=== PATIENT | female | born 1935 | race Caucasian/White ===

== ENCOUNTER 2020-02-13 21:43 | Emergency (ER) | payer MEDICARE ==
[~2020-02-13] VITALS: Ht 160 cm; Wt 63.5 kg
[~2020-02-13 21:43] MED LIST: AGRYLIN0.5 MG PO; ALLOPURINOL 30300 M1; ASPIRIN EC81 M1 PO; CALCIUM 500 +1 EAC5; CIPRO500 MG PO; CLEOCIN HCL300 MG PO; COMPAZINE5 M1 PO; DIPHENHIST50 MG; DIPHENHIST50 MG PO; FISH OIL 1,001000 MG PO; FLAGYL500 MG PO; GLUCOSAMINE &1 EACH PO; HYDREA 500 MG500 M1; KRILL OIL500 MG PO; LEVAQUIN 750 M750 MG PO; LIPITOR40 MG PO; MELATONIN5 M1 PO; MICARDIS HCT 81 EACH; MICARDIS HCT 81 EACH PO; MIDODRINE HCL 55 M1 PO; MOBIC15 MG; NORVASC 5 MG TAB5 MG; OMEPRAZOLE20 M2 PO; PROAMATINE2.5 MG; PROBIOTIC1 EAC1 PO; SERTRALINE HCL50 MG PO; TENORMIN25 MG PO; TIROSINT75 MCG PO; TRAMADOL 50 MG50 MG PO; TYLENOL EX-STR500 M2; UNICOMPLEX M TA1 TA1 PO; VITAMIN E400 UNIT PO; ZOCOR 20 MG TAB20 M1 PO; [UNRECOGNIZED DRUG - OTHER]
[2020-02-13] MEDS ORDERED: TRIPLE ANTIBIOT14 GM TOP (22:33)
[2020-02-13] MEDS ORDERED: KEFLEX500 M1 PO (22:33)
[2020-02-13] MEDS ORDERED: AQUAPHOR85 GM TOP (22:33)
[2020-02-13 22:47] VITALS: BP 165/72
== END 2020-02-13 22:48 | disposition home or self-care (01) ==
LOC: M.ERS 21:43
DX: T24.212A Burn of second degree of left thigh, initial encounter (principal); T31.11 Burns involving 10-19% of body surface with 10-19% third degree burns; M81.0 Age-related osteoporosis without current pathological fracture; I10 Essential (primary) hypertension; Z88.8 Allergy status to other drugs, medicaments and biological substances; Z88.0 Allergy status to penicillin; Z91.040 Latex allergy status; Z88.1 Allergy status to other antibiotic agents; Z79.899 Other long term (current) drug therapy; Z79.82 Long term (current) use of aspirin; Z90.49 Acquired absence of other specified parts of digestive tract; Z86.73 Personal history of transient ischemic attack (TIA), and cerebral infarction without residual deficits; X19.XXXA Contact with other heat and hot substances, initial encounter; Y93.89 Activity, other specified; Y92.89 Other specified places as the place of occurrence of the external cause; Y99.8 Other external cause status

== ENCOUNTER 2020-02-25 07:42 | Inpatient (IN) | payer MEDICARE ==
[~2020-02-25] VITALS: Ht 160 cm; Wt 63.0 kg
[~2020-02-25 07:42] MED LIST changes: +AQUAPHOR85 GM TOP; +KEFLEX500 M1 PO; +TRIPLE ANTIBIOT14 GM TOP
[2020-02-25 07:44] VITALS: BP 175/76
[2020-02-25] MEDS ORDERED: SERTRALINE HCL50 MG PO (08:12)
[2020-02-25] MEDS ORDERED: AGRYLIN0.5 MG PO ×2 (08:13→11:44)
[2020-02-25] MEDS ORDERED: MYRBETRIQ50 MG PO (08:15)
[2020-02-25] MEDS ORDERED: TYLENOL EXTRA500 MG PO (08:16)
[2020-02-25 08:49] LABS: URINE BILIRUBIN NEGATIVE (Negative); URINE BLOOD 1+ (Negative); URINE CLARITY CLEAR; URINE COLOR YELLOW; URINE GLUCOSE-RANDOM NEGATIVE (Negative); URINE KETONES NEGATIVE (Negative); URINE LEUKOCYTES-REFLEX TRACE (Negative); URINE NITRITE-REFLEX NEGATIVE (Negative); URINE PROTEIN NEGATIVE (Negative); URINE SPECIFIC GRAVITY <= 1.005 (1.005-1.030); URINE UROBILINOGEN 0.2 E.U./dl (0.2-1.0)
[2020-02-25 08:59] LABS: HEMATOCRIT 35.1 % (37.0-47.0); HEMOGLOBIN 11.9 gm/dL (12.0-15.0); RBC 3.97 mil/uL (4.20-5.00)
[2020-02-25 09:08] LABS: MCH 29.9 pg (26.0-34.0); MCHC 33.8 g/dL (28.0-37.0); MCV 88.6 fL (80.0-100.0); MPV 8.6 fl. (7.2-11.1); NUCLEATED RBCS 0 /100WBC; PLATELET COUNT* 228 thou/uL (150-400); RDW-CV 17.9 % (10.5-14.5); WBC 10.1 thou/uL (4.0-11.0)
[2020-02-25 09:09] LABS: BACTERIA-REFLEX None Seen /HPF (None Seen); CASTS None Seen /LPF (None Seen); CRYSTALS None Seen /LPF (None Seen); MUCUS None Seen strn/LPF (None Seen); SQUAMOUS 4-10 Moderate /LPF (0-3); TRANSITIONAL EPITHEL CELL 0-3 Few /LPF (None Seen); URINE RBC 3-10 Few /HPF (0-2); URINE WBC-REFLEX 6-15 Few /HPF (0-5)
[2020-02-25 09:12] LABS: CALCIUM 8.8 mg/dL (8.5-10.1); CREATININE 0.9 mg/dL (0.6-1.3); POTASSIUM 3.2 mmol/L (3.5-5.1)
[2020-02-25 09:14] LABS: PROTIME 10.9 Seconds (9.20-11.50)
[2020-02-25 09:22] LABS: ALBUMIN 3.8 g/dL (3.4-5.0); TOTAL BILIRUBIN 0.6 mg/dL (<0.1-1.0); TOTAL PROTEIN 8.3 g/dL (6.4-8.2)
[2020-02-25 09:58] LABS: ABSOLUTE EOSINOPHILS 0.1 thou/uL (0.0-0.7); ABSOLUTE LYMPHOCYTES 1.3 thou/uL (0.8-5.3); ABSOLUTE MONOCYTES 0.7 thou/uL (0.0-1.2); METAMYELOCYTES 1 %
[2020-02-25 09:59] LABS: MICROCYTES 1+; PLATELET ESTIMATE ADEQUATE
[2020-02-25 10:00] LABS: OVALOCYTES 1+
--- NOTE | 2020-02-25 10:53 | EKG ---
[place] [address] ELECTROCARDIOGRAM REPORT Name: BALJINDER CR Room: [facility]-9 ADM IN .R.#: [id number] Admission: 02/25/20 Attend Phys: Anna Jerez, Discharge: Date of : 33 Date of Service: 02/25/20 0815 Report #: [id number] THIS REPORT FOR: //name// [facility] ED Test Date: 2020-02-25 Test Time: 08:15:39 Pat Name: BALJINDER CR Department: Room: [facility] Gender: F Urologist Md: TDS : 1935 Requested By: Santo Kerr Order Number: [id number] MD: Hermann Belcher Measurements Intervals [place] Rate: 81 P: 42 FL: 205 QRS: 25 QRSD: 105 T: 57 QT: 404 QTc: 469 Interpretive Statements Sinus rhythm Abnormal R-wave progression, early transition Borderline repol abnormality, lateral leads Minimal ST elevation, inferior leads Baseline wander in lead(s) V5,V6 Compared to ECG 02/04/2017 22:37:12 ST (T wave) deviation now present Atrial abnormality no longer present Left ventricular hypertrophy no longer present Electronically Signed On 02-25-2020 10:53:21 RESPITE PROVIDER by Hermann Belcher [email or web address] <ELECTRONICALLY SIGNED> By: Hermann Belcher MD, [facility] 02/25/20 1053 4 4 Hermann Belcher MD, [facility] /EPI
[2020-02-25 13:30] VITALS: BP 156/85
[2020-02-25 16:45] VITALS: BP 156/82
--- NOTE | 2020-02-25 17:48 | NUR ---
PT ORIENTED TO ROOM. MEDS GIVEN ORDERED. PT RESTING IN BED. PICTURES TAKEN OF WOUNDS. WOUND CARE CONSULTED. FALL RISK PRECAUTIONS IN PLACE. HOURLY ROUNDING COMPLETED.
[2020-02-25 18:01] VITALS: BP 139/81
[2020-02-25 20:10] VITALS: BP 130/78
[2020-02-26] VITALS (8 sets, daily range): BP systolic 116–184; BP diastolic 65–89
[2020-02-26 05:04] LABS: HEMATOCRIT 35.9 % (37.0-47.0); MCH 30.2 pg (26.0-34.0); MCHC 33.4 g/dL (28.0-37.0); MCV 90.4 fL (80.0-100.0); MPV 9.9 fl. (7.2-11.1); RBC 3.97 mil/uL (4.20-5.00); RDW-CV 18.3 % (10.5-14.5); WBC 10.5 thou/uL (4.0-11.0)
[2020-02-26 05:38] LABS: ALBUMIN 3.4 g/dL (3.4-5.0); CALCIUM 8.8 mg/dL (8.5-10.1); MAGNESIUM 2.3 mg/dL (1.8-2.4); TOTAL BILIRUBIN 0.5 mg/dL (<0.1-1.0); TOTAL PROTEIN 7.8 g/dL (6.4-8.2)
--- NOTE | 2020-02-26 06:27 | NUR ---
PT CARE ASSUMED AT 1930. SAT MAINTAINED IN RA. ALERT AND ORIENTED X4. C/O PAIN, MEDICATION GIVEN PER EMAR. PT IS INCONTINENT AT TIMES, PUREWICK IN PLACE. CALL LIGHT WITHIN REACH AND BED IN LOW POSITION. HOURLY ROUNDING DONE FOR PT SAFETY.
--- NOTE | 2020-02-26 11:35 | NUR ---
CM spoke with Pt's son via phone. Pt resides at home alone, independent with ADLs, Pt's dtr and pd caregiver come in twice/week to assist with IADLs. Pt uses a walker for mobility, has a commode at bedside for NOC use. Hx of [facility]. No hx of SNF. Hx of [facility]. Per son, goal is home at dc, ?HH at dc. Pt is not currently on any o2, no home o2. Following.
--- NOTE | 2020-02-26 18:56 | NUR ---
PT IS RESTING AT THIS TIME. REPORTS LESS ANXIETY. HEADACHE RESOLVED. VSS ON RA. SR ON MONITOR. NOTHING FURTHER AT THIS TIME.CLWR.WCTM
[2020-02-27] VITALS (7 sets, daily range): BP systolic 139–208; BP diastolic 48–89
--- NOTE | 2020-02-27 04:52 | NUR ---
PT HAS SOME ANXIETY GIVEN LORAZEPAM FOR REST/ BP HIGH GAVE HYDRALAZINE 10 MG AT 0430 FOR BP 208/89. SHE IS RESTLESS BUT ALERT AND ORIENTED. SHE HAS TAKEN ALL MEDS SCHEDULED. USING A PUREWICK FOR INCONTINENCE. ROOM AIR, NO COUGH NOTED.
[2020-02-27] MEDS ORDERED: LEVOFLOXACIN500 MG PO (08:00)
[2020-02-27] MEDS ORDERED: PREDNISONE10 MG PO (08:00)
--- NOTE | 2020-02-27 17:49 | NUR ---
PT.WAS TO DISCHARGE HOME TODAY PENDING PHYSICAL THERAPY EVALS. UNSTEADY AND ONLY WALKED APPROX.13 FT WITH THERAPY. HELD DISCHARGE FOR TODAY BUT PLANS FOR TOMORROW WITH HOME HEALTH. PT./FAMILY WOULD LIKE TO USE [facility] FOR HOME [facility]. SON,AMARI NOTIFIED OF POTENTIAL DISCHARGE FOR TOMORROW. TME-[phone]/ [phone].
--- NOTE | 2020-02-27 18:39 | NUR ---
PT IS ALERT AND ORIENTED VERY PLEASANT FEMALE WITH COVID DIAGNOSIS ON ROOM AIR IV TO LEFT HAND CONTINUES PT WITH SCANT NONPROD COUGH AT TIMES WEAK AND USES WALKER AT HOME FOOT ULCER MAKES IT DIFFICULT FOR PT TO MOVE AROUND UP TO BSC HAD BM TODAY DOES HAVE EPISODES OF VASOVAGAL S/SX BUT DID NOT PASS OUT PT STATES IT HAS BEEN LIKE THIS FOR YEARS AND SHE USUALLY CATCHES IT BEFORE SHE DOES PT NEEDS TO GET UP AND MOVE / AMBULATE MORE PER DR VALDEZ AND STAFF SO PT CAN GO BACK HOME WITH HOME HEALTH TO HELP WITH STRENGTH GAVE TYLENOL EARLIER FOR LEG PAIN AND HEADACHE WITH EFFECTIVENESS CALL LIGHT IN REACH
[2020-02-28] VITALS (8 sets, daily range): BP systolic 113–189; BP diastolic 41–86
--- NOTE | 2020-02-28 04:50 | NUR ---
A&O X 4, RA. MEDS GIVEN ORDERED. BP HIGH, PRN HYDRALAZINE GIVEN. ATIVAN GIVEN PER PT REQUEST. DRESSING TO RT FOOT C/D/I. PUREWICK IN PLACE. CALL LIGHT WITHIN REACH. WILL CONTINUE TO MONITOR.
--- NOTE | 2020-02-28 17:38 | NUR ---
ASSESSMENT DOCUMENTED. MEDS GIVEN PER E-MAR. IV PATENT. TYLENOL GIVEN FOR HEADACHE AND PAIN. PT UP TO CHAIR THIS SHIFT. PT RESISTANT ON AMBULATION. PT DID WORK WITH OT. ORTHOSTATIC BP TAKEN CHARTED PATIENT KEPT STATING THAT SHE WAS GOING TO PASS OUT WHEN AMBULATING. NOTIFIED. DISCHARGE HELD THIS SHIFT.
[2020-02-29] VITALS (7 sets, daily range): BP systolic 145–176; BP diastolic 58–78
--- NOTE | 2020-02-29 04:34 | NUR ---
PT A&O, RA. DENIED PAIN. UP TO BSC WITH MINIMUM ASSIST. LIGHTHEADED EVERY TIME SHE GETS UP. VOMITED X 1 LAST NIGHT AFTER SHE USED BSC. NO OTHER CONCERNS AT THIS TIMES. WILL CONTINUE TO MONITOR.
--- NOTE | 2020-02-29 19:29 | NUR ---
ASSESSMENT DOCUMENTED. MEDS GIVEN PER E-MAR. IV PATENT, FLUID BOLUS GIVEN. PT REPORTING LIGHTHEADEDNESS AND NAUSEA. PT HAD SEVERAL EPISODES OF EMESIS THIS SHIFT. PT ENCOURAGED TO GET UP THIS SHIFT. PT INCONTINENT OF BLADDER SEVERAL TIMES THIS SHIFT.
--- NOTE | 2020-03-01 04:29 | NUR ---
PT A&O, ANXIOUS. REQUESTED ATIVAN THEN REFUSED ATIVAN. PT SAID SHE WAS DEPRESSED ALL DAY. PT ASKED IF SHE COULD USE PUREWICK AGAIN, EDUCATION GIVEN AND PT VERBALIZED UNDERSTANDING. UP TO BSC WITH MINIMUM ASSIST. NO N/V THIS SHIFT. TYLENOL GIVEN FOR HEADACHE. WILL CONTINUE TO MONITOR.
[2020-03-01 04:39] VITALS: BP 118/58
[2020-03-01 09:10] VITALS: BP 140/71
--- NOTE | 2020-03-01 19:36 | NUR ---
ASSESSMENT DOCUMENTED. MEDS GIVEN PER E-MAR. IV PATENT. PAIN AND NAUSEA MEDS GIVEN PER E-MAR. SCOPALOMINE PATCH PLACED BEHIND LEFT EAR. PT VERY WEAK WITH AMBULATION THIS SHIFT.
[2020-03-01 21:55] VITALS: BP 104/67
[2020-03-02] VITALS: BP 128/50
[2020-03-02 04:00] VITALS: BP 106/48
--- NOTE | 2020-03-02 07:06 | NUR ---
PATIENT HAS SLEPT OFF AND ON DURING THE NIGHT. VSS ON RA. NO C/O PAIN. MEDICATIONS GIVEN ORDERED AND CHARTED. PATIENT INCONTINENT OF BOWEL AND BLADDER. AHMET CARE PERFORMED AND CHUX AND BEDDING CHANGED. DRESSING TO RIGHT FOOT IS C/D/I. IV IN LEFT HAND-SL. FALL PRECAUTIONS IN PLACE AND HOURLY ROUNDS MADE. WILL CONTINUE WITH PLAN OF CARE AND NURSING TO MONITOR.
[2020-03-02 07:50] VITALS: BP 105/89
[2020-03-02 12:00] VITALS: BP 124/54
--- NOTE | 2020-03-02 13:53 | NUR ---
Nutrition: Pt admitted with COVID. 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 Albumin 3.4, BG 126. Regular diet, eating fair amount. Wt: 139#. H/o osteoporosis, HTN. Pt appears nutritionally stable at this time. RD available. Will follow up per protocol.
[2020-03-02 16:00] VITALS: BP 129/56
--- NOTE | 2020-03-02 16:24 | NUR ---
WOUND NURSE: PATIENT SEEN TO ADDRESS WOUND ON RIGHT THIGH AND HEEL. RIGHT THIGH BURN WOUND 2ND DEGREE CONTAINS THIN XIAO DRY SCABS. THERE IS NO ACTIVE DRAINAGE AT TIME OF THIS ASSESSMENT. THIS WOUND IS PARTIALLY HEALED AND IS UNCOMPLICATED. AFFECTED AREA MEASURES 12 X 4 X 0.1 CM. CLEANSED WITH SOAP AND WATER, RINSED WITH WATER, THEN PATTED DRY. APPLIED MEPILEX AG BORDERED FOAM DRESSING. RIGHT HEEL WOUND MEASURES 0.3 X 0.3 X 0.1 CM. CONTAINS PINK NONGRANULATING TISSUE AND SCANT SEROUSANGUINOUS DRAINAGE. THE PERIWOUND TISSUE IS CALLOUSED. CLEANSED WITH SOAP AND WATER, RINSED WITH WATER, THEN PATTED DRY. APPLIED BORDERED FOAM DRESSING. PATIENT INSTRUCTED ON MEASURES TO PROMOTE HEALING AND PREVENT COMPLICATIONS. 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 CARLOS ALSO REPORTS SHE BURNT HER LEG AFTER SPILLING HOT TEA ON HERSELF PRIOR TO HOSPITALIZATION.
--- NOTE | 2020-03-02 18:18 | NUR ---
PT A&OX4 VSS. PT HAS INCONTINENT EPISODES. SINUS ON MONITOR. DRESSING TO R FOOT CHANGED BY CHAIM CARUSO. ADAM NURSE ALSO DRESSED WOUND TO L THIGH. IV TO L HAND PATENT. STEROIDS DC'D. PT UP TO SIDE OF BED TODAY FOR MEALS. PT RESTING IN ROOM WITH CALL LIGHT IN REACH, WILL CONTINUE TO MONITOR.
--- NOTE | 2020-03-02 18:30 | NUR ---
PT.WILL NEED SNF AT DISCHARGE. LEFT VM FOR SON,RENETTA, TO CALL CM BACK TO DISCUSS DISCHARGE PLANNING. ALSO LEFT NAMES OF SNFS THAT ARE TAKING POSITIVE COVID PT.S
[2020-03-02 20:00] VITALS: BP 135/61
--- NOTE | 2020-03-03 04:44 | NUR ---
PATIENT HAS RESTED WELL THROUGHOUT THE NIGHT. VSS ON RA. NO C/O PAIN. MEDICATIONS GIVEN ORDERED AND CHARTED. PATIENT HAS GENERALIZED WEAKNESS. PATIENT INCONTINENT OF URINE AT TIMES AND AHMET CARE PERFORMED. DRESSING TO RIGHT FOOT IS C/D/I, AND DRESSING TO RIGHT THIGH IS C/D/I. IV IN LEFT HAND-SL. NO BM DURING SHIFT. FALL PRECAUTIONS IN PLACE AND HOURLY ROUNDS MADE. WILL CONTINUE WITH PLAN OF CARE AND NURSING TO MONITOR.
[2020-03-03 07:32] LABS: CALCIUM 8.3 mg/dL (8.5-10.1); MAGNESIUM 2.5 mg/dL (1.8-2.4)
[2020-03-03 07:35] LABS: POTASSIUM 2.4 mmol/L (3.5-5.1)
[2020-03-03 09:04] VITALS: BP 125/74
[2020-03-03 12:11] VITALS: BP 105/55
--- NOTE | 2020-03-03 15:43 | NUR ---
SPOKE WITH PTS SON,RENETTA, EARLIER ON PHONE. HE WAS REALISTIC ABOUT MOM NEEDING TO GO TO SNF SINCE SHE IS SO WEAK. DISCUSSED SNFS THAT ARE TAKING COVID POSITIVE PT.S . EXPLAINED THAT SECOND COVID WILL BE DONE TODAY AND IF NEG. SHE COULD GO TO A FACILITY AROUND THIS AREA. IF POSITIVE HE WOULD LIKE HER TO GO TO [facility]. IF NEGATIVE-[facility]. CM FAXED REFERRAL TO BOTH FACILITIES. WILL WAIT TO SEE COVID RESULTS AND HAVE FACILITY SUBMIT FOR AUTH ACCORDINGLY.
[2020-03-03 16:19] VITALS: BP 98/47
--- NOTE | 2020-03-03 18:33 | NUR ---
ASSESS PT WITH DR TORO TODAY. INSTRUCTED TO HOLD BLOOD PRESSURE MEDS TODAY AND REPLACE POTASSIUM. PT COULD NOT SWALLOW LARGE POTASSIUM PILLS SO I DISSOVLED THEM WITH HOT WATER AND MIXED WITH CRANBERRY JUICE X 3 DOSES. WILL RECHECK SERUM POTASSIUM THIS EVENING. INSTRUCTED TO KEEP PT ON TELE. WILL CONTINUE TO ASSESS.
[2020-03-03 21:00] VITALS: BP 122/60
[2020-03-04] VITALS: BP 136/63
[2020-03-04 04:00] VITALS: BP 152/72
[2020-03-04 06:00] LABS: CALCIUM 7.5 mg/dL (8.5-10.1); MAGNESIUM 2.2 mg/dL (1.8-2.4)
[2020-03-04 06:02] LABS: POTASSIUM 3.3 mmol/L (3.5-5.1)
--- NOTE | 2020-03-04 06:37 | NUR ---
PATIENT SLEPT MOST OF THE NIGHT. POTASSIUM WAS STILL 2.3 ON REDRAW. NEW IV WAS STARTED IN RIGHT FOREARM AND IV POTASSIUM WAS GIVEN WAS REPLACED PER PROTOCOL POTASSIUM THIS MORNING IS UP TO 3.3 AND POTASSIUM IS STILL INFUSING. PATIENT IS DOWN TO 8L OXYGEN ON HFNC. PLASMA WAS GIVEN ORDERED. PATIENT STATES SHE IS STARTING TO FEEL MUCH BETTER. WILL CONTINUE TO MONITOR.
--- NOTE | 2020-03-04 06:49 | NUR ---
PATIENT SLEPT MOST OF THE NIGHT. PATIENT POTASSIUM WAS 2.3 STILL AFTER REDRAW. NEW IV WAS STARTED AND POTASSIUM WAS REPLACED IV PER PROTOCOL. POTASSIUM WAS 3.3 THIS MORNING AND ANOTHER BAG OF POTASSIUM WAS GIVEN. WILL CONTINUE TO MONITOR.
[2020-03-04 08:00] VITALS: BP 130/69
[2020-03-04] MEDS ORDERED: FLORASTOR250 MG PO (09:32)
[2020-03-04] MEDS ORDERED: TRANSDERM-SCOP1 EACH TRANSDERM (09:32)
[2020-03-04] MEDS ORDERED: ANUSOL-HC25 MG RECTAL (12:23)
--- NOTE | 2020-03-04 14:40 | NUR ---
CM F/U WITH JOSE AT [facility]. TO CHECK FOR UPDATE. JOSE IS STILL REVEIWING, NEEDING UPDATE THERAPY NOTES FAXED. THERE WERE NO UPDATED PT NOTES, SINCE 03/01. CM CONTACT PT TO ASKED FOR UPDATE.
[2020-03-04 16:12] VITALS: BP 127/66
--- NOTE | 2020-03-04 18:35 | NUR ---
ASSUMED PT CARE AT 0730, PT AOX4, NO C/O PAIN OR SHORTNESS OF BREATH. PT FAMILY CALLED AND UPDATED ON POC. PT HAD POTASSIUM IV RUNNING THIS MORNING, REDRAW ORDERED AND POTASSIUM NOW WNL. PT VERY WEAK ON FEET AND HAS FOOT DROP SO PT USED COMMODE TODAY AND GOT UP TO CHAIR FOR DINNER. PT GOAL IS TO REMAIN FREE FROM FALLS AND KEEP ELECTROLYTES WNL. AM ASSESSMENT CHARTED, MEDS PER MAR, HOURLY ROUNDING OBSERVED, FALL PRECAUTIONS IN PLACE, CALL LIGHT W/IN REACH, PT IN ISO FOR COVID.
[2020-03-04 20:30] VITALS: BP 150/78
[2020-03-05 00:05] VITALS: BP 136/57
--- NOTE | 2020-03-05 06:24 | NUR ---
PT SLEPT FAIRLY WELL OVERNIGHT AFTER RECEIVING HS MEDS. UP WITH SBA AND WALKER TO BATHROOM WITH INSPECTOR FIN[employer]SEM[employer] MECHANICAL WHO STATES SHE WAS FAIRLY STEADY. PT STATES HER HOME SHOES PROVIDE SUPPORT FOR R FOOT AND SHE AMBULATES BETTER WITH THEM ON. DRSG TO R HEEL AND R BACK OF THIGH INTACT. TELE SR. ROOM AIR SAT 97%. AOX4, ABLE TO USE CALL LITE AND MAKE NEEDS KNOWN. AM LABS. MED SURG STATUS. DNR. CM FOLLOWING FOR DC PLAN, HOME VS SNF. PT SEEING PATIENT. SLIV. NO BM THIS SHIFT.
[2020-03-05 08:00] VITALS: BP 136/60
[2020-03-05 12:23] VITALS: BP 136/60
[2020-03-05 12:30] VITALS: BP 136/60
--- NOTE | 2020-03-05 14:00 | NUR ---
FAXED DISCHARGE INFORMAITON TO A. THEY CALLED BACK AT THIS TIME TO SAY THEY ARE ALL BOOKED UP UNTIL NEXT WEEK-SUN. CM FAXED TO [facility] AND THEY CAN ACCEPT. NOTIFIED PT.BY PHONE.
--- NOTE | 2020-03-05 14:36 | NUR ---
ASSUMED PT CARE AT 0730, PT AOX4, NO C/O PAIN OR SHORTNESS OF BREATH. PT WORKED W/ DR TODAY AND DC ORDERS RECEIVED. PT APPROVED TO DC TO HOME W/ HH, HH SET UP. BOTH IV'S REMOVED. DC INSTRUCTIONS, CARE NOTES, SCRIPTS AND F/U APPTS GIVEN TO PT. PT COMMUNICATES UNDERSTANDING OF DC TEACHING. PT DC'D BY WC W/ NURSING STAFF AT APPROX 1435 W/ ALL PERSONAL BELONGINGS AND PAPERWORK.
--- NOTE | 2020-03-05 17:44 | NUR ---
[facility] COULD NOT ACCEPT PT.TO SERVICE THEY ARE FULL UNTIL NEXT WEEK. REFERRED TO [facility]. FAXED INFORMATION AND DC INSTRUCTIONS. THEY CAN ACCEPT PT. NOTIFIED PT.BY PHONE OF DIFFERENT AGENCY.
== END 2020-03-05 14:25 | disposition home health service (06) | DRG 177 ==
LOC: M.ERS 07:42 → M.TBA-ER 09:40 → M.ORTHSURG 09:40
PROVIDERS: Family Medicine; Internal Medicine; ADMIT Internal Medicine; ATTEND Internal Medicine
DX: U07.1 COVID-19 (principal); N17.0 Acute kidney failure with tubular necrosis; N39.0 Urinary tract infection, site not specified; K52.1 Toxic gastroenteritis and colitis; E87.1 Hypo-osmolality and hyponatremia; K92.2 Gastrointestinal hemorrhage, unspecified; M81.0 Age-related osteoporosis without current pathological fracture; I10 Essential (primary) hypertension; R31.9 Hematuria, unspecified; B96.89 Other specified bacterial agents as the cause of diseases classified elsewhere; D47.3 Essential (hemorrhagic) thrombocythemia; K64.9 Unspecified hemorrhoids; T36.95XA Adverse effect of unspecified systemic antibiotic, initial encounter; E86.0 Dehydration; E87.6 Hypokalemia; T50.2X5A Adverse effect of carbonic-anhydrase inhibitors, benzothiadiazides and other diuretics, initial encounter; Z90.49 Acquired absence of other specified parts of digestive tract; Z86.73 Personal history of transient ischemic attack (TIA), and cerebral infarction without residual deficits; Z88.0 Allergy status to penicillin; Z88.8 Allergy status to other drugs, medicaments and biological substances; Z88.1 Allergy status to other antibiotic agents; Z91.040 Latex allergy status; Z79.899 Other long term (current) drug therapy; Y92.89 Other specified places as the place of occurrence of the external cause

== ENCOUNTER 2020-08-19 18:41 | Emergency (ER) | payer MEDICARE ==
[~2020-08-19] VITALS: Ht 160 cm; Wt 59.0 kg
[~2020-08-19 18:41] MED LIST changes: +ANUSOL-HC25 MG RECTAL; +FLORASTOR250 MG PO; +LEVOFLOXACIN500 MG PO; +MYRBETRIQ50 MG PO; +PREDNISONE10 MG PO; +TRANSDERM-SCOP1 EACH TRANSDERM; +TYLENOL EXTRA500 MG PO
[2020-08-19] MEDS ORDERED: NORVASC5 MG PO (19:49)
[2020-08-19] MEDS ORDERED: ULTRAM 50MG TAB50 MG PO (19:50)
[2020-08-19] MEDS ORDERED: VITAMIN E1000 UNIT PO (19:50)
[2020-08-19] MEDS ORDERED: MELATONIN10 M3 PO (19:51)
[2020-08-19] MEDS ORDERED: SENNA PLUS TAB1 EACH PO (19:51)
[2020-08-19 21:26] LABS: URINE BILIRUBIN NEGATIVE (Negative); URINE BLOOD NEGATIVE (Negative); URINE COLOR YELLOW; URINE GLUCOSE-RANDOM NEGATIVE (Negative); URINE KETONES NEGATIVE (Negative); URINE LEUKOCYTES-REFLEX 1+ (Negative); URINE NITRITE-REFLEX NEGATIVE (Negative); URINE PROTEIN TRACE (Negative); URINE UROBILINOGEN 0.2 E.U./dl (0.2-1.0)
[2020-08-19 21:28] LABS: URINE CLARITY SL HAZY
[2020-08-19 21:34] LABS: BACTERIA-REFLEX >30 Many /HPF (None Seen); COARSE GRANULAR CASTS 0-3 Few /LPF (None Seen); CRYSTALS None Seen /LPF (None Seen); FINE GRANULAR CASTS 0-3 Few /LPF (None Seen); MUCUS 4-6 Moderate strn/LPF (None Seen); RENAL EPITHELIAL CELLS 0-3 Few /LPF (None Seen); SQUAMOUS 0-3 Few /LPF (0-3); TRANSITIONAL EPITHEL CELL 0-3 Few /LPF (None Seen); URINE RBC 3-10 Few /HPF (0-2); URINE WBC-REFLEX >25 Many /HPF (0-5); WBC CLUMPS Moderate (None Seen)
[2020-08-19] MEDS ORDERED: MACROBID 100 M100 M1 PO (22:35)
[2020-08-19] MEDS ORDERED: ZOFRAN ODT4 MG PO (22:35)
[2020-08-19 22:59] VITALS: BP 167/68
--- NOTE | 2020-08-20 10:50 | EKG ---
[place] [address] ELECTROCARDIOGRAM REPORT Name: BALJINDER CR Room: [facility]#: [id number] Admission: 08/19/20 Attend Phys: Discharge: 08/19/20 Date of : 33 Date of Service: 08/19/201944 Report #: [id number] THIS REPORT FOR: //name// [facility] ED Test Date: 2020-08-19 Test Time: 19:45:41 Pat Name: BALJINDER CR Department: Room: Gender: F [place]: [place] : 1935 Requested By: Rosana Corrigan Order Number: [id number] Candis MD: Ty Kaur Measurements Intervals [place] Rate: 70 P: 38 [place]: 198 QRS: 9 QRSD: 98 T: 33 QT: 417 QTc: 450 Interpretive Statements Sinus rhythm Left ventricular hypertrophy Compared to ECG 02/25/2020 08:15:39 Left ventricular hypertrophy now present ST (T wave) deviation no longer present Electronically Signed On 08-20-2020 10:50:32 CDT by Ty Kaur [email or web address] <ELECTRONICALLY SIGNED> By: Ty Kaur MD, [facility] 08/20/20 1050 [id number] Ty Kaur MD, [facility] /EPI
== END 2020-08-19 23:00 | disposition home or self-care (01) ==
LOC: M.ERS 18:41
PROVIDERS: Emergency Medicine
DX: S92.514A Nondisplaced fracture of proximal phalanx of right lesser toe(s), initial encounter for closed fracture (principal); N39.0 Urinary tract infection, site not specified; I10 Essential (primary) hypertension; Z88.8 Allergy status to other drugs, medicaments and biological substances; Z88.3 Allergy status to other anti-infective agents; Z88.0 Allergy status to penicillin; Z88.1 Allergy status to other antibiotic agents; Z79.899 Other long term (current) drug therapy; Z79.82 Long term (current) use of aspirin; Z98.51 Tubal ligation status; Z86.73 Personal history of transient ischemic attack (TIA), and cerebral infarction without residual deficits; W18.09XA Striking against other object with subsequent fall, initial encounter; Y93.89 Activity, other specified; Y92.098 Other place in other non-institutional residence as the place of occurrence of the external cause; Y99.9 Unspecified external cause status

== ENCOUNTER 2020-10-29 13:07 | Emergency (ER) | payer MEDICARE ==
[~2020-10-29] VITALS: Ht 160 cm; Wt 61.2 kg
[~2020-10-29 13:07] MED LIST changes: +MACROBID 100 M100 M1 PO; +MELATONIN10 M3 PO; +NORVASC5 MG PO; +SENNA PLUS TAB1 EACH PO; +ULTRAM 50MG TAB50 MG PO; +VITAMIN E1000 UNIT PO; +ZOFRAN ODT4 MG PO
[2020-10-29 14:33] LABS: URINE BILIRUBIN NEGATIVE (Negative); URINE BLOOD NEGATIVE (Negative); URINE CLARITY CLEAR; URINE COLOR DARK YELLOW; URINE GLUCOSE-RANDOM TRACE (Negative); URINE KETONES NEGATIVE (Negative); URINE PROTEIN TRACE (Negative); URINE SPECIFIC GRAVITY <= 1.005 (1.005-1.030)
[2020-10-29 14:35] LABS: URINE LEUKOCYTES-REFLEX 2+ (Negative); URINE NITRITE-REFLEX POSITIVE (Negative)
[2020-10-29 14:40] LABS: SQUAMOUS 4-10 Moderate /LPF (0-3)
[2020-10-29 14:41] LABS: BACTERIA-REFLEX None Seen /HPF (None Seen); CASTS None Seen /LPF (None Seen); CRYSTALS None Seen /LPF (None Seen); URINE RBC None Seen /HPF (0-2); URINE WBC-REFLEX 6-15 Few /HPF (0-5)
[2020-10-29] MEDS ORDERED: MACROBID 100 M100 MG PO (14:42)
[2020-10-29] MEDS ORDERED: PYRIDIUM100 M1 PO (14:42)
[2020-10-29 15:13] VITALS: BP 166/64
== END 2020-10-29 15:14 | disposition home or self-care (01) ==
LOC: M.ERS 13:07
PROVIDERS: Family Medicine
DX: N39.0 Urinary tract infection, site not specified (principal); I10 Essential (primary) hypertension; Z86.73 Personal history of transient ischemic attack (TIA), and cerebral infarction without residual deficits; Z90.49 Acquired absence of other specified parts of digestive tract; Z85.828 Personal history of other malignant neoplasm of skin; Z88.1 Allergy status to other antibiotic agents; Z88.2 Allergy status to sulfonamides; Z88.6 Allergy status to analgesic agent; Z88.8 Allergy status to other drugs, medicaments and biological substances; Z91.040 Latex allergy status; Z79.899 Other long term (current) drug therapy